=== PATIENT | male | born 1965 | race Two or more races ===

== ENCOUNTER 2016-10-29 22:55 | Emergency (ER) | payer MEDICAID, OTHER ==
[~2016-10-29] VITALS: Ht 175.3 cm; Wt 70.3 kg
--- NOTE | 2016-10-29 23:00 | NUR ---
TO BED 8 A 51 YO MALE BIBRA PER EMS "PATIENT WAS SEEN IN [facility]." PATIENT IS AAOX2, AM BULATORY WITH MINIMAL ASSISTANCE. VSS. INITIATED SAFETY MEASURES. AWAITING FOR ER MD GAINES.
[2016-10-29] MEDS ORDERED: IV SET PRIMARY 1 EA INFUS.SET MC ONE (23:20)
[2016-10-29] MEDS ORDERED: IV NS 0.9% 1,000 ML ONE (23:20)
[2016-10-29] MEDS ORDERED: IV NS 0.9% 1,000 ML BAG IV ONE (23:30)
--- NOTE | 2016-10-29 23:30 | NUR ---
STARTED A SALINE LOCK ON THE LEFT THUMB G20.
--- NOTE | 2016-10-29 23:38 | NUR ---
LAB AT BEDSIDE TO DRAW BLOOD FOR TESTING
[2016-10-29 23:58] LABS: BASOPHILS % (AUTO) 0.6 % (0.0-2.0); EOSINOPHILS % (AUTO) 0.4 % (0.0-6.0); HEMATOCRIT 47 % (39-51); HEMOGLOBIN 15.6 g/dL (13.5-17.5); LYMPHOCYTES # (AUTO) 1.6 /CMM (0.8-4.8); LYMPHOCYTES % (AUTO) 38.9 % (20.0-44.0); MEAN CORPUSCULAR HEMOGLOBIN 31 PG (26.0-33.0); MEAN CORPUSCULAR HGB CONC 33 g/dl (31.0-36.0); MEAN CORPUSCULAR VOLUME 95 fL (80-96); MONOCYTES # (AUTO) 0.3 /CMM (0.1-1.30); MONOCYTES % (AUTO) 7.9 % (2.0-12.0); NEUTROPHILS # (AUTO) 2.2 /CMM (1.8-8.9); NEUTROPHILS % (AUTO) 52.2 % (43.0-81.0); PLATELET COUNT (AUTO) 243 /CMM (150-450); RDW COEFFICIENT OF VARIATION 14.3 (11.5-15.0); RED BLOOD CELL COUNT(AUTO) 4.97 MIL/uL (4.5-6.0); WHITE BLOOD COUNT (AUTO) 4.2 K/uL (4.3-11.0)
[2016-10-30 00:08] LABS: CALCIUM, SERUM 7.6 mg/dL (8.5-10.1); CREATININE 0.8 mg/dL (0.6-1.3); POTASSIUM 3.6 mmol/L (3.5-5.1)
[2016-10-30 00:15] LABS: ALBUMIN 3.9 g/dL (3.4-5.0); BILIRUBIN,DIRECT 0.2 mg/dL (0.0-0.2); BILIRUBIN,TOTAL 0.5 mg/dL (0.2-1.0); TOTAL PROTEIN, SERUM 7.2 g/dL (6.4-8.2)
[2016-10-30 00:16] LABS: SALICYLATE 1.7 mg/dL (2.8-20.0)
[2016-10-30 00:21] LABS: THYROID STIMULATING HORMONE 2.473 uIU/mL (0.358-3.74)
[2016-10-30] MEDS ORDERED: IV NS 0.9% 1,000 ML ONE (01:34)
[2016-10-30] MEDS ORDERED: IV SET PRIMARY 1 EA INFUS.SET MC ONE (01:34)
[2016-10-30] MEDS ORDERED: IV NS 0.9% 1,000 ML BAG IV ONE (02:00)
--- NOTE | 2016-10-30 05:24 | NUR ---
PATIENT IS SLEEPING COMFORTABLY AT THIS TIME. VSS.
[2016-10-30 07:32] VITALS: BP 106/71
--- NOTE | 2016-10-30 07:32 | NUR ---
Patient is resting comfortably in bed with eyes closed. Easily aroused. VSS
--- NOTE | 2016-10-30 10:57 | NUR ---
CALLED [facility] FOR PSYCH EVAL, LEFT MESSAGE ON VOICEMAIL
[2016-10-30] MEDS ORDERED: LORAZEPAM 1 MG TABLET PO ONE (11:00)
--- NOTE | 2016-10-30 11:00 | NUR ---
Patient ambulates to the restroom with stable gait.
[2016-10-30] MEDS ORDERED: LORAZEPAM 1 MG TABLET ONE (11:01)
--- NOTE | 2016-10-30 11:09 | NUR ---
Urine obtained sent to the lab.
[2016-10-30 11:29] LABS: CANNABINOID, URINE NEGATIVE (NEGATIVE); PHENCYCLIDINE SCREEN,URINE NEGATIVE (NEGATIVE)
--- NOTE | 2016-10-30 12:35 | NUR ---
[facility] RN AT FOR PSYCH EVAL.
--- NOTE | 2016-10-30 12:45 | NUR ---
Patient is resting comfortably in bed with eyes closed. Easily aroused. VSS
--- NOTE | 2016-10-30 13:40 | NUR ---
PATIENT POSSIBLY PULLED OUT HIS IV, IVHL WAS SEEN ON THE BED, BLOOD ALL OVER HIS BED AND RESTROOM.
--- NOTE | 2016-10-30 13:44 | NUR ---
Patient eloped from facility. ER MD notified.
== END 2016-10-30 13:49 | disposition left against medical advice (07) ==
LOC: ER 22:57
DX: F10.129 Alcohol abuse with intoxication, unspecified (principal); I10 Essential (primary) hypertension; J44.9 Chronic obstructive pulmonary disease, unspecified; F32.9 Major depressive disorder, single episode, unspecified; F39 Unspecified mood [affective] disorder; Z76.5 Malingerer [conscious simulation]; Z59.0 Homelessness
CPT/HCPCS: 36415; 80048-TC; 80076-TC; 80305; 83690-TC; 84443-TC; 85025-TC; A4606; G0480; G6039-TC; J7030; Z7610

== ENCOUNTER 2017-07-05 23:25 | Emergency (ER) | payer OTHER ==
[~2017-07-05] VITALS: Ht 180.3 cm; Wt 86.2 kg
--- NOTE | 2017-07-05 23:35 | NUR ---
TO BED 15 A 52 YO MALE PATIENT BIBRA FOR ETOH AND SI " TO HANG HIMSELF." VSS. NAD NOTED. NONDIAPHORETIC. COMFORT AND SAFETY MEASURES IN PLACE. ONGOING VS AND CARDIAC MONITORING.
[2017-07-06 00:08] LABS: BASOPHILS % (AUTO) 0.2 % (0.0-2.0); EOSINOPHILS % (AUTO) 0.5 % (0.0-6.0); HEMATOCRIT 40 % (39-51); HEMOGLOBIN 14.2 g/dL (13.5-17.5); LYMPHOCYTES # (AUTO) 1.2 /CMM (0.8-4.8); LYMPHOCYTES % (AUTO) 24.4 % (20.0-44.0); MEAN CORPUSCULAR HEMOGLOBIN 32 PG (26.0-33.0); MEAN CORPUSCULAR HGB CONC 35 g/dl (31.0-36.0); MEAN CORPUSCULAR VOLUME 92 fL (80-96); MONOCYTES # (AUTO) 0.5 /CMM (0.1-1.30); MONOCYTES % (AUTO) 10.1 % (2.0-12.0); NEUTROPHILS # (AUTO) 3.1 /CMM (1.8-8.9); NEUTROPHILS % (AUTO) 64.8 % (43.0-81.0); PLATELET COUNT (AUTO) 235 /CMM (150-450); RDW COEFFICIENT OF VARIATION 13.7 (11.5-15.0); RED BLOOD CELL COUNT(AUTO) 4.39 MIL/uL (4.5-6.0); WHITE BLOOD COUNT (AUTO) 4.7 K/uL (4.3-11.0)
[2017-07-06 00:23] LABS: CREATININE 0.7 mg/dL (0.6-1.3); POTASSIUM 3.3 mmol/L (3.5-5.1)
[2017-07-06 00:27] LABS: ALBUMIN 3.3 g/dL (3.4-5.0); BILIRUBIN,DIRECT 0.1 mg/dL (0.0-0.2); BILIRUBIN,TOTAL 0.4 mg/dL (0.2-1.0); SALICYLATE 1.8 mg/dL (2.8-20.0); TOTAL PROTEIN, SERUM 6.6 g/dL (6.4-8.2)
--- NOTE | 2017-07-06 02:54 | NUR ---
pt sleeping, breathing loudly/even/unlabored, arrousable to voice, no c/o pain at this time, nad noted, continue to monitor
[2017-07-06 03:32] LABS: APPEARANCE,URINE CLEAR (CLEAR); BILIRUBIN,URINE NEGATIVE (NEGATIVE); BLOOD, URINE NEGATIVE Ery/uL (NEGATIVE); COLOR,URINE YELLOW (YELLOW); KETONES,URINE NEGATIVE (NEGATIVE); LEUKOCYTE ESTERASE ,URINE NEGATIVE (NEGATIVE); NITRITE, URINE NEGATIVE (NEGATIVE); PROTEIN,URINE NEGATIVE (NEGATIVE); UGLUCOSE NEGATIVE (NEGATIVE); UROBILINOGEN,URINE 0.2 EU/dL (0.2)
--- NOTE | 2017-07-06 03:59 | NUR ---
PT SLEEPING BREATHING LOUDLY/EVEN, ARROUSABLE TO VOICE, ADMITS TO ETOH CONSUMPTION, NO C/O PAIN AT THIS TIME, WILL CONTINUE TO MONITOR
--- NOTE | 2017-07-06 09:33 | NUR ---
CALLED [facility] FOR PSYCH EVAL, ETA 1 HOUR
--- NOTE | 2017-07-06 10:31 | NUR ---
PT AMBULATORY WITH STEADY GAIT TO THE RESTROOM, DENIES SUICIDAL OR HOMICIDAL IDEATION AT THIS TIME. PT REPORTS THAT HE WAS JUST DRINKING TOO MUCH LAST NIGHT AND DOES NOT FEEL DEPRESSED. MADE AWARE
[2017-07-06 11:23] VITALS: BP 134/77
--- NOTE | 2017-07-06 11:24 | NUR ---
Patient discharged to home in stable condition. Written and verbal after care instructions given. Patient verbalizes understanding of instruction.
== END 2017-07-06 11:24 | disposition home or self-care (01) ==
LOC: ER 23:28
DX: R45.851 Suicidal ideations (principal); F19.10 Other psychoactive substance abuse, uncomplicated; F10.129 Alcohol abuse with intoxication, unspecified; F32.9 Major depressive disorder, single episode, unspecified; I10 Essential (primary) hypertension; J44.9 Chronic obstructive pulmonary disease, unspecified; J45.909 Unspecified asthma, uncomplicated
CPT/HCPCS: 36415; 80048; 80076; 80305; 80329; 81001; 85025; 99284; A4606; G0480 ×2; Z7610; 81000-TC

== ENCOUNTER 2017-07-08 15:59 | Emergency (ER) | payer OTHER ==
[~2017-07-08] VITALS: Ht 177.8 cm; Wt 90.7 kg
--- NOTE | 2017-07-08 16:50 | NUR ---
52 YO MALE BB SELF. PATIENT IS A/O X 3, C/O ALCOHOL INTOXICATION. PATIENT ASSISTED TO ER BED, SKIN WARM AND DRY, RESP EVEN AND UNLABORED. 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 AWAITING OERDERS FROM PROVIDER, WILL CONTINUE TO MONITOR
[2017-07-08] MEDS ORDERED: IV NS 0.9% 1,000 ML BAG IV ONE (17:00)
--- NOTE | 2017-07-08 17:04 | NUR ---
18G RIGHT AC IV STARTED, BLOOD SAMPLE OBTAINED AND SENT TO LAB. MEDICATED PT ORDERED
--- NOTE | 2017-07-08 17:04 | NUR ---
PATIENT TRANSPORTED TO CT VIA GURNEY BY MACHINIST APPRENTICE
[2017-07-08 17:17] LABS: BASOPHILS % (AUTO) 0.8 % (0.0-2.0); EOSINOPHILS % (AUTO) 0.9 % (0.0-6.0); HEMATOCRIT 46 % (39-51); LYMPHOCYTES # (AUTO) 1.2 /CMM (0.8-4.8); LYMPHOCYTES % (AUTO) 33.4 % (20.0-44.0); MEAN CORPUSCULAR HEMOGLOBIN 32 PG (26.0-33.0); MEAN CORPUSCULAR HGB CONC 35 g/dl (31.0-36.0); MEAN CORPUSCULAR VOLUME 92 fL (80-96); MONOCYTES # (AUTO) 0.3 /CMM (0.1-1.30); MONOCYTES % (AUTO) 8.1 % (2.0-12.0); NEUTROPHILS # (AUTO) 2.1 /CMM (1.8-8.9); NEUTROPHILS % (AUTO) 56.8 % (43.0-81.0); PLATELET COUNT (AUTO) 255 /CMM (150-450); RDW COEFFICIENT OF VARIATION 14.1 (11.5-15.0); RED BLOOD CELL COUNT(AUTO) 4.99 MIL/uL (4.5-6.0); WHITE BLOOD COUNT (AUTO) 3.6 K/uL (4.3-11.0)
[2017-07-08 17:29] LABS: CREATININE 0.7 mg/dL (0.6-1.3); POTASSIUM 3.8 mmol/L (3.5-5.1)
[2017-07-08 17:37] LABS: ALBUMIN 3.4 g/dL (3.4-5.0); BILIRUBIN,DIRECT 0.2 mg/dL (0.0-0.2); BILIRUBIN,TOTAL 0.5 mg/dL (0.2-1.0); TOTAL PROTEIN, SERUM 7.1 g/dL (6.4-8.2)
[2017-07-08 17:39] LABS: SALICYLATE 1.5 mg/dL (2.8-20.0)
[2017-07-08 17:42] LABS: THYROID STIMULATING HORMONE 1.502 uIU/mL (0.358-3.74)
[2017-07-08 17:54] LABS: APPEARANCE,URINE Clear (CLEAR); BILIRUBIN,URINE Negative (NEGATIVE); BLOOD, URINE Negative Ery/uL (NEGATIVE); COLOR,URINE Yellow (YELLOW); KETONES,URINE Negative (NEGATIVE); LEUKOCYTE ESTERASE ,URINE Negative (NEGATIVE); NITRITE, URINE Negative (NEGATIVE); PH,URINE 5.5 (5.0-8.0); PROTEIN,URINE Negative (NEGATIVE); UGLUCOSE Negative (NEGATIVE); UROBILINOGEN,URINE 0.2 EU/dL (0.2)
[2017-07-08 18:34] LABS: INR 0.9 (0.87-1.13)
--- NOTE | 2017-07-08 19:15 | NUR ---
PT SLEEPING/SNORING LOUDLY/EVEN, ARROUSABLE TO VOICE, A/O X3 IV TO R AC WITH NS RUNNING, FNP IN PLACE NSR,
--- NOTE | 2017-07-08 20:55 | NUR ---
pt provided with food/juice, updated on plan of care to d/c
--- NOTE | 2017-07-09 00:28 | NUR ---
PT SLEEPING, SNORING LOUDLY/EVEN, ARROUSABLE TO VOICE, NAD NOTED, NO C/O PAIN AT THIS TME
--- NOTE | 2017-07-09 02:00 | NUR ---
PT AWAKE A/O X 3, BREATHING UNLABORED, NO C/O PAIN, GIVEN URINAL TO PEE. WILL CONTINUE TO MONITOR
--- NOTE | 2017-07-09 04:22 | NUR ---
PT SLEEPING, BREATHING EVEN/UNLABOREDM, NAD NTOED, CONTINUE TO MONITOR
--- NOTE | 2017-07-09 06:00 | NUR ---
PT AMBULATED THROUGHTOUT ER, STEADY GAIT, PT EDUCATED ON RISK OF ALCHOL WITHDRAWL AND ENCOURAGED TO SEEK HELP AT [facility], LIST PROVIDED.
[2017-07-09 06:17] VITALS: BP 127/87
== END 2017-07-09 06:18 | disposition home or self-care (01) ==
LOC: ER 16:03
DX: F10.229 Alcohol dependence with intoxication, unspecified (principal); Z76.5 Malingerer [conscious simulation]; I10 Essential (primary) hypertension; J45.909 Unspecified asthma, uncomplicated; F32.9 Major depressive disorder, single episode, unspecified; J44.9 Chronic obstructive pulmonary disease, unspecified
CPT/HCPCS: 36415; 70450; 70486; 71045; 80048; 80076; 80305; 80329; 81001; 82962; 84443; 84484; 85025; 85730; 93005; 96360; 99285; A4606; G0480 ×2; Z7610; 81000-TC

== ENCOUNTER 2019-02-28 19:09 | Emergency (ER) | payer OTHER ==
[~2019-02-28] VITALS: Ht 182.9 cm; Wt 88.5 kg
[2019-02-28] MEDS ORDERED: IV NS 0.9% 1,000 ML BAG IV ONE (21:00)
[2019-02-28] MEDS ORDERED: LORAZEPAM INJ 2 MG/ML VIAL IV ONE (21:00)
[2019-02-28] MEDS ORDERED: ONDANSETRON HCL/PF 4 MG/2 ML VIAL IV ONE (21:00)
[2019-02-28 21:01] LABS: BASOPHILS # (AUTO) 0.1 /CMM (0.0-0.2); BASOPHILS % (AUTO) 1.5 % (0.0-2.0); EOSINOPHILS % (AUTO) 1.5 % (0.0-6.0); HEMATOCRIT 50 % (39-51); HEMOGLOBIN 16.8 g/dL (13.5-17.5); LYMPHOCYTES # (AUTO) 2.2 /CMM (0.8-4.8); MEAN CORPUSCULAR HGB CONC 34 g/dl (31.0-36.0); MEAN CORPUSCULAR VOLUME 94 fL (80-96); MONOCYTES # (AUTO) 0.3 /CMM (0.1-1.30); NEUTROPHILS # (AUTO) 2.6 /CMM (1.8-8.9); PLATELET COUNT (AUTO) 263 /CMM (150-450); RED BLOOD CELL COUNT(AUTO) 5.32 MIL/uL (4.5-6.0); WHITE BLOOD COUNT (AUTO) 5.2 K/uL (4.3-11.0)
[2019-02-28 21:08] LABS: CALCIUM, SERUM 8.1 mg/dL (8.5-10.1); CREATININE 0.8 mg/dL (0.6-1.3); POTASSIUM 3.8 mmol/L (3.5-5.1)
[2019-02-28 21:15] LABS: ALBUMIN 3.5 g/dL (3.4-5.0); BILIRUBIN,DIRECT 0.4 mg/dL (0.0-0.2); BILIRUBIN,TOTAL 1.1 mg/dL (0.2-1.0); TOTAL PROTEIN, SERUM 6.2 g/dL (6.4-8.2)
[2019-02-28] MEDS ORDERED: ONDANSETRON HCL/PF 4 MG/2 ML VIAL ONE (21:27)
[2019-02-28] MEDS ORDERED: LORAZEPAM INJ 2 MG/ML VIAL ONE (21:27)
[2019-02-28 21:28] LABS: APPEARANCE,URINE Clear (CLEAR); BILIRUBIN,URINE SMALL (NEGATIVE); BLOOD, URINE Negative Ery/uL (NEGATIVE); COLOR,URINE Yellow (YELLOW); KETONES,URINE 15 (NEGATIVE); LEUKOCYTE ESTERASE ,URINE Negative (NEGATIVE); NITRITE, URINE Negative (NEGATIVE); PROTEIN,URINE Negative (NEGATIVE); UGLUCOSE Negative (NEGATIVE)
[2019-02-28 21:31] LABS: BACTERIA,URINE Rare /HPF (None Seen); RBC,URINE 0-2 /HPF (0-2); SQUAMOUS EPITHELIAL CELL,UR Few /HPF (None Seen); WBC,URINE 0-2 /HPF (0-3)
--- NOTE | 2019-02-28 21:40 | NUR ---
Pt to er c/o si. +etoh. Pt vital signs stable. No immediate signs of distress noted. si precautions implemented. Will cont to monitor pt.
--- NOTE | 2019-03-01 01:02 | NUR ---
Pt sleeping in [facility]. No signs of distress noted. Pt vital signs stable. will cont to monitor pt.
--- NOTE | 2019-03-01 06:22 | NUR ---
Pt easily arousable. Pt admits to drinking alcohol heavily last pm. Pt now denies any si. Will cont to monitor pt.;
--- NOTE | 2019-03-01 08:26 | NUR ---
IV removed. Catheter intact and site benign. Pressure and 4x4 applied to site. No bleeding noted. Patient discharged to home in stable condition. Written and verbal after care instructions given. Patient verbalizes understanding of instruction.
[2019-03-01 08:27] VITALS: BP 122/67
== END 2019-03-01 08:28 | disposition home or self-care (01) ==
LOC: ER 19:19
DX: R45.851 Suicidal ideations (principal); F32.9 Major depressive disorder, single episode, unspecified; F10.10 Alcohol abuse, uncomplicated; R56.9 Unspecified convulsions; I10 Essential (primary) hypertension; J44.9 Chronic obstructive pulmonary disease, unspecified; Y90.8 Blood alcohol level of 240 mg/100 ml or more; Z60.2 Problems related to living alone
CPT/HCPCS: 36415; 80048; 80076; 80305; 80307; 80329; 81001; 85025; 96374; 96375; 99284; G0480; J2060; J2405; J7030; 81000-TC